=== PATIENT | male | born 1975 | race Caucasian/White ===

== ENCOUNTER → 2020-08-17 | Outpatient (CLI) | payer BC ==
--- NOTE | 2020-08-17 10:04 | CT ---
EXAMINATION TYPE: CT heart w calcium score DATE OF EXAM: 08/17/2020 COMPARISON: None HISTORY: Screening for cardiovascular disorder. 213.9 CT DLP: 62.8 mGycm Automated exposure control for dose reduction was used. CT CALCIUM SCORING Coronary calcium is a marker for plaque (fatty deposits) in a blood vessel or atherosclerosis (harden ing of the arteries). The presence and amount of calcium detected in a coronary artery by the CT sca n, indicates the presence and amount of atherosclerotic plaque. These calcium deposits appear years before the development of heart disease symptoms such as chest pain and shortness of breath. A calcium score is computed for each of the coronary arteries based upon the volume and density of th e calcium deposits. This can be referred to as your calcified plaque burden. It does not correspond directly to the percentage of narrowing in the artery but does correlate with the severity of the un derlying coronary atherosclerosis. PROCEDURE TECHNIQUE - Prospective Gating was used. Slice thickness: 3mm. Density threshold (HU): 130, Pixel threshold: 3, Algorithm: discrete. RESULTS: Portions of the lung blackwell and mediastinum within the [id number] are normal. Region: LM Calcium Score ([place]): 0.00 Region: RCA Calcium Score ([place]): 49.32 Region: LAD Calcium Score ([place]): 0.00 Region: CX Calcium Score ([place]): 0.00 Region: PDA Calcium Score ([place]): 0.00 Total: Calcium Score ([place]): 49.32 TOTAL CALCIUM SCORE: 49.32 IMPRESSION: Calcium Score: 49.32 Implication: At least mild atherosclerotic plaque present Risk of Coronary Artery Disease: Mild or minimal coronary artery narrowing is likely Impression: 1. Some atheromatous plaquing present. Cardiac workup can be performed as clinically indicated. CALCIUM SCORE IMPLICATION RISK OF C ORONARY ARTERY DISEASE 0 No identifiable plaque Very low, generally less than 5% 1-10 Minimal identifiable plaque Very unlikely, less than 10% 11-100 Definite, at least mild atherosclerotic plaque Mild or m inimal coronary narrowings likely 101-400 Definite, at least moderate atherosclerotic plaque Mild coronary ar alma disease highly likely, significant narrowing possible 401 or Higher Extensive atherosclerotic plaque High lik elihood of at least one significant coronary narrowing
== END ==
LOC: RADCTMAIN 08:38
PROVIDERS: ATTEND Family Medicine
DX: I49.5 Sick sinus syndrome (principal); I25.10 Atherosclerotic heart disease of native coronary artery without angina pectoris; Z82.49 Family history of ischemic heart disease and other diseases of the circulatory system
CPT/HCPCS: 75571